=== PATIENT | female | born 1970 | race African-American/Black ===

== ENCOUNTER 2018-07-17 07:45 | Emergency (ER) | payer OTHER ==
[~2018-07-17] VITALS: Ht 170.2 cm; Wt 104.0 kg
[2018-07-17] MEDS ORDERED: KETOROLAC 60MG/2ML VIAL IM ONE (08:45)
[2018-07-17 10:06] VITALS: BP 153/87
== END 2018-07-17 10:49 | disposition home or self-care (01) ==
LOC: ER 07:45
DX: M25.562 Pain in left knee (principal); X50.0XXA Overexertion from strenuous movement or load, initial encounter; Y93.89 Activity, other specified; Y92.488 Other paved roadways as the place of occurrence of the external cause; I10 Essential (primary) hypertension
CPT/HCPCS: 73562; 96372; 99284; J1885; L1830; Z7610